=== PATIENT | female | born 1980 | race African-American/Black ===

== ENCOUNTER 2016-12-15 13:49 | Emergency (ER) | payer OTHER ==
[2016-12-15 14:01] VITALS: BP 120/71; PULSE 83; RESP 18; TEMP 98.4; O2SAT 100
--- NOTE | 2016-12-15 15:05 | PD ---
HPI Chief Complaint: Skin Problem Time Seen by Provider: 15:05 Travel History International Travel<30 days: No Contact w/Intl Traveler<30days: No Traveled to known affect area: No History of Present Illness HPI 36-year-old female presents to emergency department for evaluation of what she believes is a spider bite on her abdomen. She noticed it 2 days ago. It has become large, draining, with associated erythema on her abdomen. Pain is a 10 out of 10, constant, throbbing. It does not radiate anywhere. Denies fever or chills but states she has not felt well. Denies no symptoms at this time. PFSH Past Medical History Blood Disorders: No Anxiety: No Depression: Yes Heart Rhythm Problems: Yes (Hx HEART MURMUR) Cancer: No Cardiovascular Problems: No Chemotherapy: No Diminished Hearing: No Endocrine: No Genitourinary: No Hypertension: Yes (DIET CONTROLLED) Immune Disorder: No Musculoskeletal: No Neurologic: No Psychiatric: No Reproductive: No Respiratory: No Immunizations Current: No Radiation Therapy: No : 2 Para: 2 Miscarriage: 0 : 0 Tubal Ligation: Yes (FEB 2010) Past Surgical History AICD: No Arteriovenous Shunt: No Section: Yes (X2) Insulin Pump: No Joint Replacement: No Pacemaker: No Other Surgery: No Social History Alcohol Use: No Tobacco Use: No Substance Use: No Allergies-Medications (Allergen,Severity, Reaction): Coded Allergies: aspirin (Unverified Allergy, Severe, 09/22/16) diphenhydramine (Unverified Allergy, Severe, Swelling, 09/22/16) penicillin G (Unverified Allergy, Unknown, 09/22/16) acetaminophen (Unverified Adverse Reaction, Intermediate, Nausea/Vomiting , 09/22/16) oxycodone (Unverified Adverse Reaction, Intermediate, Nausea/Vomiting, ) Reported Meds & Prescriptions Reported Meds & Active Scripts Active No Active Prescriptions or Reported Medications Review of Systems Except as stated in HPI: all other systems reviewed are Neg Physical Exam Narrative GENERAL: Well-nourished, female patient, in no acute distress. SKIN: Focused skin assessment warm/dry. 7 cm diameter skin lesion on the anterior abdomen inferior to the umbilicus. There is yellow slough. There is associated erythema surrounding approximately 10 cm in diameter. HEAD: Normocephalic. EYES: No scleral icterus. No injection or drainage. NECK: Supple, trachea midline. No JVD or lymphadenopathy. CARDIOVASCULAR: Regular rate RESPIRATORY: No accessory muscle use. GASTROINTESTINAL: Abdomen nondistended. MUSCULOSKELETAL: No cyanosis, or edema. BACK: without obvious deformity. Data Data Last Documented VS Vital Signs Date Time Temp Pulse Resp B/P (MAP) Pulse Ox O2 Delivery O2 Flow Rate FiO2 12/15/16 15:04 12/15/16 14:01 98.4 83 18 100 Room Air Orders Orders Complete Blood Count With Diff (12/15/16 14:11) Basic Metabolic Panel (Bmp) (12/15/16 14:11) Wound Culture And Gram Stain (12/15/16 14:11) Labs Laboratory Tests Test 12/15/16 14:50 White Blood Count 5.1 TH/MM3 Red Blood Count 3.98 MIL/MM3 Hemoglobin 11.8 GM/DL Hematocrit 36.0 % Mean Corpuscular Volume 90.3 FL Mean Corpuscular Hemoglobin 29.5 PG Mean Corpuscular Hemoglobin Concent 32.7 % Red Cell Distribution Width 14.7 % Platelet Count 198 TH/MM3 Mean Platelet Volume 7.1 FL Neutrophils (%) (Auto) 62.0 % Lymphocytes (%) (Auto) 26.7 % Monocytes (%) (Auto) 6.9 % Eosinophils (%) (Auto) 3.6 % Basophils (%) (Auto) 0.8 % Neutrophils # (Auto) 3.2 TH/MM3 Lymphocytes # (Auto) 1.4 TH/MM3 Monocytes # (Auto) 0.4 TH/MM3 Eosinophils # (Auto) 0.2 TH/MM3 Basophils # (Auto) 0.0 TH/MM3 CBC Comment DIFF FINAL Differential Comment Blood Urea Nitrogen 11 MG/DL Creatinine 0.66 MG/DL Random Glucose 92 MG/DL Calcium Level 8.7 MG/DL Sodium Level 145 MEQ/L Potassium Level 3.5 MEQ/L Chloride Level 108 MEQ/L Carbon Dioxide Level 29.6 MEQ/L Anion Gap 7 MEQ/L Estimat Glomerular Filtration Rate 124 ML/MIN [facility] Medical Decision Making Medical Screen Exam Complete: Yes Emergency Medical Condition: Yes Medical Record Reviewed: Yes Differential Diagnosis Cellulitis versus abscess versus folliculitis versus contact dermatitis versus local reaction Narrative Course 36-year-old female presents to the department for evaluation which she believes is a spider bite on her abdomen. Patient appears to have a skin lesion that is draining assisting erythema. Workup was initiated in triage. Prior to workup complete and medical diabetes available, patient chooses to leave AGAINST MEDICAL ADVICE. AMA: The risks of leaving against medical advice without further evaluation treatment were discussed with the patient. These risks include cardiac dysfunction, cardiac dysrhythmia, possible heart attack, possible stroke or . The patient indicated understanding of these risks and appeared to have the capacity to make this decision. Diagnosis Primary Impression: Abdominal wall abscess Additional Impression: Abdominal wall cellulitis Scripts No Active Prescriptions or Reported Meds Disposition: 07 AGAINST MEDICAL ADVICE Condition: Stable ColmenaresMarine camacho TWAN Dec 15, 2016 15:05
[2016-12-15 15:06] LABS: AUTOMATED NEUTROPHIL # 3.2 TH/MM3 (1.8-7.7); BASOPHIL % 0.8 % (0.0-2.0); EOSINOPHIL # 0.2 TH/MM3 (0-0.4); EOSINOPHIL % 3.6 % (0.0-4.0); HEMO FLAGS DIFF FINAL; LYMPH % 26.7 % (9.0-44.0); LYMPHOCYTE # 1.4 TH/MM3 (1.0-4.8); MEAN CELL VOLUME 90.3 FL (80.0-100.0); MEAN CORPUSCULAR HEMOGLOBIN 29.5 PG (27.0-34.0); MEAN CORPUSCULAR HGB CONC 32.7 % (32.0-36.0); MONO % 6.9 % (0.0-8.0); PLATELET COUNT 198 TH/MM3 (150-450); RED BLOOD COUNT 3.98 MIL/MM3 (4.00-5.30); RED CELL DISTRIBUTION WIDTH 14.7 % (11.6-17.2); WHITE BLOOD COUNT 5.1 TH/MM3 (4.0-11.0)
[2016-12-15 15:22] LABS: BICARBONATE 29.6 MEQ/L (21.0-32.0); POTASSIUM 3.5 MEQ/L (3.5-5.1)
== END 2016-12-15 16:02 | disposition left against medical advice (07) ==
LOC: NED 13:49
DX: L02.211 Cutaneous abscess of abdominal wall (principal); L03.311 Cellulitis of abdominal wall; B95.7 Other staphylococcus as the cause of diseases classified elsewhere; F32.9 Major depressive disorder, single episode, unspecified; I10 Essential (primary) hypertension; Z88.6 Allergy status to analgesic agent; Z88.0 Allergy status to penicillin; Z88.5 Allergy status to narcotic agent; Z88.8 Allergy status to other drugs, medicaments and biological substances
CPT/HCPCS: 80048; 85025; 86403; 87070; 87186; 87205; 99283